=== PATIENT | female | born 1990 | race Caucasian/White ===

== ENCOUNTER 2017-11-12 13:04 | Inpatient (IN) | payer MEDICAID ==
[~2017-11-12] VITALS: Ht 158 cm; Wt 96.2 kg
[~2017-11-12 13:04] MED LIST: FentaNYL CITRATE-PF 100 MCG/2 ML VIAL IVP ONE
[2017-11-12] MEDS ORDERED: PNV1TABL54 PO (13:16)
[2017-11-12 13:48] VITALS: BP 104/65
[2017-11-12 14:19] LABS: GLUCOMETER DEV NAME(LOC) 4S 8; GLUCOSE,POINT OF CARE 75 MG/DL (70-110)
[2017-11-12] MEDS ORDERED: CITRIC ACID/SODIUM CITRATE 30 ML SOLUTION UDCUP PO PRN (15:15)
[2017-11-12] MEDS ORDERED: METOCLOPRAMIDE HCL 5 MG/ML 2 ML VIAL IVP PRN (15:15)
[2017-11-12] MEDS ORDERED: OXYTOCIN 30 UNITS/LACT RINGERS 500 ML IV ONE (15:15)
[2017-11-12] MEDS ORDERED: MISOPROSTOL 25 MCG TABLET VG SCH (15:15)
[2017-11-12] MEDS ORDERED: AMPICILLIN SODIUM 2 GM/NS 100 ML IV ONE (15:15)
[2017-11-12] MEDS ORDERED: LIDOCAINE/PF 1% 30 ML VIAL INJ PRN (15:15)
[2017-11-12] MEDS ORDERED: RINGERS SOLUTION,LACTATED 1,000 ML IV PRN (15:15)
[2017-11-12 15:58] LABS: BASOPHILS % (AUTO) 0.2 % (0.0-2.0); EOSINOPHILS % (AUTO) 2.6 % (1.0-6.0); HEMATOCRIT 40.3 % (36-46); HEMOGLOBIN 13.5 g/dL (12.0-16.0); LYMPHOCYTES # (AUTO) 1.3 K/uL (1.0-4.8); LYMPHOCYTES % (AUTO) 16.8 % (22.0-44.0); MEAN CORPUSCULAR HEMOGLOBIN 29.3 pg (26.0-34.0); MEAN CORPUSCULAR HGB CONC 33.5 G/dL (31.0-37.0); MEAN CORPUSCULAR VOLUME 87 fL (80-100); MONOCYTES # (AUTO) 0.4 K/uL (0.1-1.0); MONOCYTES % (AUTO) 5.6 % (2.0-9.0); NEUTROPHILS # (AUTO) 5.9 K/uL (1.8-7.7); NEUTROPHILS % (AUTO) 74.8 % (40.0-70.0); PLATELET COUNT (AUTO)-OB 243 K/uL (150-450); RED BLOOD CELL COUNT(AUTO) 4.62 MIL/uL (4.00-5.20); RED CELL DISTRIBUTION WIDTH 14.2 % (11.5-14.5)
[2017-11-12] MEDS: RINGERS SOLUTION,LACTATED 1,000 ML IV SCH ×2 (16:11→22:48)
[2017-11-12] MEDS ORDERED: OXYGEN THERAPY IH SCH (20:00)
[2017-11-12 20:12] LABS: RUBELLA SCREEN (IGG) IMMUNE (IMMUNE)
[2017-11-12] MEDS: AMPICILLIN SODIUM 1 GM/NS 50 ML IV SCH (20:30)
[2017-11-12] MEDS ORDERED: DINOPROSTONE 10 MG VAGINAL SUPPOSITORY VG ONE (21:15)
[2017-11-12] MEDS: FentaNYL CITRATE-PF 100 MCG/2 ML VIAL IVP PRN ×4 (21:28→22:39)
[2017-11-13] MEDS ORDERED: BUTORPHANOL TARTRATE 2 MG/ML VIAL IM ONE
[2017-11-13] MEDS: AMPICILLIN SODIUM 1 GM/NS 50 ML IV SCH ×6 (00:22→21:18)
[2017-11-13] MEDS ORDERED: BUTORPHANOL TARTRATE 2 MG/ML VIAL IVP PRN (00:30)
[2017-11-13] MEDS ORDERED: ROPIVACAINE HCL/PF 0.2% 100 ML ED ONE ×3 (02:13→19:29)
[2017-11-13] MEDS ORDERED: LIDOCAINE/PF 2% 5 ML VIAL ONE (02:13)
[2017-11-13] MEDS ORDERED: ROPIVACAINE HCL/PF 0.2% 100 ML ED PRN (02:31)
[2017-11-13] MEDS ORDERED: NALBUPHINE HCL 10 MG/ML VIAL IVP PRN (02:45)
[2017-11-13] MEDS ORDERED: DiphenhydrAMINE HCL 50 MG/ML VIAL IVP PRN (02:45)
[2017-11-13] MEDS ORDERED: ONDANSETRON HCL 4 MG/2 ML VIAL IVP PRN (02:45)
[2017-11-13] MEDS ORDERED: -PHARMACY NOTE- MISC ONE (09:15)
[2017-11-13] MEDS: RINGERS SOLUTION,LACTATED 1,000 ML IV SCH ×2 (10:12→19:49)
[2017-11-13] MEDS ORDERED: OXYTOCIN 30 UNITS/LACT RINGERS 500 ML IV PRN (11:30)
[2017-11-14] MEDS: AMPICILLIN SODIUM 1 GM/NS 50 ML IV SCH ×2 (00:29→04:26)
[2017-11-14] MEDS ORDERED: ROPIVACAINE HCL/PF 0.2% 100 ML ED ONE (01:26)
[2017-11-14] MEDS ORDERED: TERBUTALINE SULFATE 1 MG/ML VIAL ONE (05:01)
[2017-11-14] MEDS ORDERED: TERBUTALINE SULFATE 1 MG/ML VIAL SQ ONE (05:04)
[2017-11-14] MEDS ORDERED: LIDOCAINE/PF 2% 5 ML VIAL ONE (05:20)
[2017-11-14] MEDS ORDERED: RINGERS SOLUTION,LACTATED 1,000 ML IV ONE (05:20)
[2017-11-14] MEDS ORDERED: SODIUM CHLORIDE 0.9% 1,000 ML IV ONE (05:20)
[2017-11-14] MEDS ORDERED: ACETAMINOPHEN/CODEINE 300-30 MG TABLET PO PRN (06:30)
[2017-11-14] MEDS ORDERED: LANOLIN 7 GM OINTMENT TP PRN (06:30)
[2017-11-14] MEDS ORDERED: FentaNYL CITRATE-PF 100 MCG/2 ML VIAL ONE (07:14)
[2017-11-14] MEDS: FentaNYL CITRATE-PF 100 MCG/2 ML VIAL IVP PRN (07:17)
[2017-11-14] MEDS ORDERED: MEPERIDINE HCL/PF 25 MG/0.5 ML AMP IVP PRN (07:45)
[2017-11-14] MEDS ORDERED: MORPHINE SULFATE 10 MG/ML SYRINGE IVP PRN (07:45)
[2017-11-14] MEDS ORDERED: KETOROLAC TROMETHAMINE 30 MG/ML VIAL IVP SCH (07:45)
[2017-11-14] MEDS ORDERED: HYDROmorphone 2 MG/ML SYRINGE IVP PRN (07:45)
[2017-11-14] MEDS ORDERED: NALOXONE HCL 0.4 MG/ML VIAL IVP PRN (07:45)
[2017-11-14] MEDS ORDERED: FentaNYL CITRATE-PF 100 MCG/2 ML VIAL IVP PRN ×2 (07:45)
[2017-11-14] MEDS ORDERED: METHYLERGONOVINE MALEATE 0.2 MG/ML VIAL ONE (07:52)
[2017-11-14] MEDS ORDERED: OXYGEN THERAPY IH SCH ×3 (08:00)
[2017-11-14] MEDS ORDERED: ACETAMINOPHEN 1000 MG/ISO-OSM 100 ML IV ONE (08:03)
[2017-11-14] MEDS ORDERED: DEXTROSE 5%-0.45% SODIUM CHL 1,000 ML IV ONE (08:06)
[2017-11-14] MEDS: ACETAMINOPHEN 1000 MG/ISO-OSM 100 ML IV SCH ×2 (08:08→16:19)
[2017-11-14] MEDS: DEXTROSE 5%-0.45% SODIUM CHL 1,000 ML IV SCH ×3 (08:08→20:07)
[2017-11-14] MEDS ORDERED: DiphenhydrAMINE HCL 50 MG/ML VIAL IVP PRN (09:00)
[2017-11-14] MEDS ORDERED: ONDANSETRON HCL 4 MG/2 ML VIAL IVP PRN (09:00)
[2017-11-14] MEDS: MAGNESIUM HYDROXIDE SUSPENSION 30 ML UDCUP PO SCH ×2 (09:00→21:18)
[2017-11-14] MEDS ORDERED: NALBUPHINE HCL 10 MG/ML VIAL IVP PRN ×2 (09:00)
[2017-11-14] MEDS ORDERED: LIDOCAINE/PF 2% 5 ML VIAL INJ ONE (12:00)
[2017-11-14] MEDS: IBUPROFEN 800 MG TABLET PO SCH (23:01)
[2017-11-15] MEDS ORDERED: DEXTROSE 5%-0.45% SODIUM CHL 1,000 ML IV ONE (00:23)
[2017-11-15] MEDS: DEXTROSE 5%-0.45% SODIUM CHL 1,000 ML IV SCH (01:48)
[2017-11-15] MEDS: IBUPROFEN 800 MG TABLET PO SCH ×4 (05:11→21:54)
[2017-11-15] MEDS: MAGNESIUM HYDROXIDE SUSPENSION 30 ML UDCUP PO SCH ×2 (10:49→20:55)
[2017-11-15] MEDS: ACETAMINOPHEN/CODEINE 300-30 MG TABLET PO PRN (16:07)
[2017-11-15] MEDS ORDERED: BISACODYL 10 MG RECTAL RECTAL SUPPOSITORY PR PRN (18:45)
[2017-11-15] MEDS: SENNA/DOCUSATE SODIUM 187-50 MG TABLET PO PRN (20:56)
[2017-11-16] MEDS: ACETAMINOPHEN/CODEINE 300-30 MG TABLET PO PRN (00:13)
[2017-11-16] MEDS: IBUPROFEN 800 MG TABLET PO SCH ×3 (03:56→22:03)
[2017-11-16] MEDS: MAGNESIUM HYDROXIDE SUSPENSION 30 ML UDCUP PO SCH ×2 (11:23→22:02)
[2017-11-16] MEDS: SENNA/DOCUSATE SODIUM 187-50 MG TABLET PO PRN ×2 (16:17→22:02)
[2017-11-17] MEDS: IBUPROFEN 800 MG TABLET PO SCH ×4 (04:18→23:10)
[2017-11-17] MEDS: MAGNESIUM HYDROXIDE SUSPENSION 30 ML UDCUP PO SCH ×2 (09:13→21:00)
[2017-11-17] MEDS: SENNA/DOCUSATE SODIUM 187-50 MG TABLET PO PRN (09:15)
[2017-11-18] MEDS: IBUPROFEN 800 MG TABLET PO SCH ×2 (05:17→15:23)
[2017-11-18] MEDS ORDERED: PERCT PO (16:17)
[2017-11-18] MEDS ORDERED: DSS100 PO (16:18)
[2017-11-18] MEDS ORDERED: IBUP-2071 PO (16:18)
== END 2017-11-18 20:45 | disposition home or self-care (01) | DRG 540 ==
LOC: 4S 13:09 → OBSVTOIN 13:09 → 4S 11-14 08:25
PROVIDERS: ADMIT Obstetrics & Gynecology; ATTEND Obstetrics & Gynecology
PROC: 10D00Z1 Extraction of Products of Conception, Low, Open Approach (ICD-10-PCS; principal; 2017-11-14)
DX: O76 Abnormality in fetal heart rate and rhythm complicating labor and delivery (principal); O41.03X0 Oligohydramnios, third trimester, not applicable or unspecified; O62.0 Primary inadequate contractions; O77.0 Labor and delivery complicated by meconium in amniotic fluid; Z3A.41 41 weeks gestation of pregnancy; Z37.0 Single live birth
CPT/HCPCS: 76805; 80307; 86592; 86762; 86850; 86900; 86901; 87340; J0131; J0290; J0595; J0690; J1170; J2210; J2590; J2765; J2795; J3010; J3105; J3490; J7030; J7120

== ENCOUNTER 2017-11-23 23:43 | Emergency (ER) | payer MEDICAID ==
[~2017-11-23] VITALS: Ht 160 cm; Wt 86.0 kg
[~2017-11-23 23:43] MED LIST changes: +DSS100 PO; -FentaNYL CITRATE-PF 100 MCG/2 ML VIAL IVP ONE; +IBUP-2071 PO; +PERCT PO; +PNV1TABL54 PO
[2017-11-24] MEDS ORDERED: HYDROGEN PEROXIDE 118 ML SOLUTION TP ONE (01:15)
[2017-11-24 02:08] VITALS: BP 98/59
== END 2017-11-24 02:10 | disposition home or self-care (01) ==
LOC: EMS 23:44
DX: O86.01 Infection of obstetric surgical wound, superficial incisional site (principal); Z79.899 Other long term (current) drug therapy
CPT/HCPCS: 99283

== ENCOUNTER 2019-09-28 15:09 | Emergency (ER) | payer MEDICAID ==
[~2019-09-28] VITALS: Ht 165.1 cm; Wt 84.0 kg
[~2019-09-28 15:09] MED LIST changes: -PNV1TABL54 PO
[2019-09-28] MEDS ORDERED: IBUPROFEN 600 MG TABLET PO ONE (17:30)
[2019-09-28 19:29] VITALS: BP 126/84
== END 2019-09-28 19:38 | disposition home or self-care (01) ==
LOC: EMS 15:17
DX: S09.93XA Unspecified injury of face, initial encounter (principal); Y04.0XXA Assault by unarmed brawl or fight, initial encounter; Y93.89 Activity, other specified; Y92.89 Other specified places as the place of occurrence of the external cause; Y99.8 Other external cause status